=== PATIENT | female | born 1995 | race Caucasian/White ===

== ENCOUNTER 2023-06-09 23:50 | Inpatient (IN) ==
[2023-06-10] MEDS ORDERED: Buffered Lidocaine 1% SYRIN 1 ml ONE (00:17)
[2023-06-10] MEDS ORDERED: Lactated Ringers 1000 ml BAG 1,000 ML IV ONE ×2 (00:21→06:57)
[2023-06-10] MEDS ORDERED: Penicillin G Potassium IV 5,000,000 UNITS in NS 0.9% 100 ml BAG 100 ML IVPB ONE (00:21)
[2023-06-10] MEDS ORDERED: Buffered Lidocaine 1% SYRIN 1 ml INTRADERM ONE (00:21)
[2023-06-10] MEDS ORDERED: Promethazine INJ(RESTRICTED) 25 MG/ML 1 ml VIAL IV PRN (00:21)
[2023-06-10 01:00] LABS: ABS Basophils 0.1 10^3/uL (0.0-0.1); ABS Eosinophils 0.1 10^3/uL (0.0-0.5); ABS Lymphocytes 1.7 10^3/uL (1.0-4.8); ABS Monocytes 0.6 10^3/uL (0.0-0.9); ABS Neutrophils 5.4 10^3/uL (1.5-7.6); ABS Nucleated RBC 0.01 10^3/ul; Eosinophil % 0.7 %; Hematocrit 32.7 % (35-45); Hemoglobin 10.9 g/dL (11.5-14.3); Lymphocyte % 21.8 %; Mean Corpuscular Hemoglobin 25.4 pg (27-33); Mean Corpuscular Hgb Conc 33.3 g/dL (31-36); Mean Corpuscular Volume 76.2 fL (80-97); Mean Platelet Volume 8.1 fL (7.5-11.2); Nucleated Red Blood Cells % 0.1 /100 WBC (0.0-0.4); Platelet Count 175 10^3/uL (150-450); Red Blood Count 4.29 10^6/uL (3.63-4.92); White Blood Count 7.8 10^3/uL (3.8-11.8)
[2023-06-10] MEDS: Betamethasone 6 mg/ml 5 ml VIAL IM SCH (01:19)
[2023-06-10 01:22] LABS: Urine Benzodiazepine Screen None Detected (None Detect); Urine Cannabinoids Screen None Detected (None Detect); Urine Opiates Screen None Detected (None Detect)
[2023-06-10] MEDS ORDERED: Lidocaine 1% w EPI 1:200,000 SDV 10 ML VIAL ONE (02:09)
[2023-06-10] MEDS ORDERED: OBEPIDURAL (200 ML) 200 ML EPIDURAL ONE (02:09)
[2023-06-10] MEDS ORDERED: Lidocaine 2% w/ EPI 1:200,000 MPF 20 ML SDV VIAL ONE (02:29)
[2023-06-10] MEDS ORDERED: fentaNYL 100 mcg/2 ml 50 MCG/ML VIAL ONE (02:29)
[2023-06-10] MEDS ORDERED: Bupivacaine 0.25% SDV PF 10 ML VIAL INJ ONE (02:30)
[2023-06-10] MEDS: Lactated Ringers 1000 ml BAG 1,000 ML IV SCH ×5 (02:57→18:26)
[2023-06-10 03:44] LABS: Urine Appearance Clear; Urine Bilirubin Negative (Negative); Urine Blood 2+ (Negative); Urine Color Straw; Urine Glucose Negative (Negative); Urine Ketones Negative (Negative); Urine Nitrite Negative (Negative); Urine Protein Negative (Negative); Urine Specific Gravity 1.008 (1.002-1.030); Urine Urobilinogen Negative (Negative)
[2023-06-10 03:52] LABS: Urine Amorphous Crystals Present (Absent); Urine Bacteria Absent (Absent); Urine Red Blood Cell 3+(>10/hpf) (Absent); Urine Squamous Epithelial Cell Present (Absent); Urine White Blood Cell Absent (Absent)
[2023-06-10] MEDS: Penicillin G Potassium IV 3,000,000 UNITS in NS 0.9% 100 ml BAG 100 ML IVPB SCH ×4 (05:24→18:25)
[2023-06-10] MEDS ORDERED: Phenylephrine 40 mcg/mL 10mL (400mcg) SYRINGE IV PUSH PRN ×2 (06:57)
[2023-06-10] MEDS ORDERED: Sodium Citrate/Citric Acid LIQ 15 ML UDC PO PRN (06:57)
[2023-06-10] MEDS ORDERED: OBEPIDURAL (200 ML) 200 ML EPIDURAL SCH (07:00)
[2023-06-10] MEDS ORDERED: Oxytocin in LR 20,000 MILLI.UNIT/1,000 ML BAG IV SCH (18:00)
[2023-06-10] MEDS: Dibucaine 1% OINT 28.35 GM TUBE PR PRN (22:48)
[2023-06-10] MEDS: Witch Hazel PAD JAR TOPICAL PRN (22:48)
[2023-06-10] MEDS ORDERED: Lactated Ringers 1000 ml BAG 1,000 ML IV SCH (23:00)
[2023-06-11] MEDS: Penicillin G Potassium IV 3,000,000 UNITS in NS 0.9% 100 ml BAG 100 ML IVPB SCH (02:31)
[2023-06-11] MEDS: Betamethasone 6 mg/ml 5 ml VIAL IM SCH (04:16)
[2023-06-11 06:48] LABS: ABS Basophils 0.1 10^3/uL (0.0-0.1); ABS Lymphocytes 1.3 10^3/uL (1.0-4.8); ABS Monocytes 0.7 10^3/uL (0.0-0.9); ABS Neutrophils 7.8 10^3/uL (1.5-7.6); Eosinophil % 0.1 %; Hematocrit 24.9 % (35-45); Hemoglobin 8.4 g/dL (11.5-14.3); Lymphocyte % 12.6 %; Mean Corpuscular Hemoglobin 25.7 pg (27-33); Mean Corpuscular Hgb Conc 33.6 g/dL (31-36); Mean Corpuscular Volume 76.3 fL (80-97); Mean Platelet Volume 8.2 fL (7.5-11.2); Platelet Count 124 10^3/uL (150-450); Red Blood Count 3.27 10^6/uL (3.63-4.92); Red Cell Distribution Width 15.1 % (12-17); White Blood Count 9.9 10^3/uL (3.8-11.8)
[2023-06-11] MEDS ORDERED: Iron Sucrose 200 MG in NS 0.9% 100 ml BAG 100 ML IVPB ONE (12:00)
[2023-06-12 07:23] LABS: ABS Eosinophils 0.1 10^3/uL (0.0-0.5); ABS Lymphocytes 0.8 10^3/uL (1.0-4.8); ABS Monocytes 0.5 10^3/uL (0.0-0.9); ABS Neutrophils 4.3 10^3/uL (1.5-7.6); ABS Nucleated RBC 0.01 10^3/ul; Eosinophil % 1.4 %; Hemoglobin 8.6 g/dL (11.5-14.3); Lymphocyte % 14.6 %; Mean Corpuscular Hemoglobin 25.2 pg (27-33); Mean Corpuscular Volume 76.3 fL (80-97); Mean Platelet Volume 8.3 fL (7.5-11.2); Nucleated Red Blood Cells % 0.1 /100 WBC (0.0-0.4); Platelet Count 110 10^3/uL (150-450); Red Blood Count 3.41 10^6/uL (3.63-4.92); Red Cell Distribution Width 15.3 % (12-17); White Blood Count 5.7 10^3/uL (3.8-11.8)
[2023-06-12] MEDS: Witch Hazel PAD JAR TOPICAL PRN (07:51)
[2023-06-12] MEDS: Dibucaine 1% OINT 28.35 GM TUBE PR PRN (07:51)
[2023-06-12] MEDS ORDERED: Varicella Virus Vaccine Live 0.5 ML VIAL SUBCUT ONE (09:04)
[2023-06-12 14:07] VITALS: BP 123/68
[2023-06-12] MEDS ORDERED: Lidocaine 5% OINT TUBE TOPICAL PRN (16:13)
== END 2023-06-12 18:27 | disposition home or self-care (01) | DRG 560 ==
LOC: MCHOBOUT 23:50 → MCHOB 06-10 00:41
PROVIDERS: ADMIT Advanced Practice Midwife; ATTEND Advanced Practice Midwife

== ENCOUNTER 2024-07-04 11:56 | Observation (INO) ==
[2024-07-04] MEDS: Lactated Ringers 1000 ml BAG 1,000 ML IV ONE (13:22)
[2024-07-04] MEDS: Ondansetron 4 mg VIAL 2 MG/ML 2 ml VIAL IV ONE (13:22)
[2024-07-04 13:28] LABS: Hematocrit 40.8 % (35-45); Hemoglobin 13.6 g/dL (11.5-14.3); Mean Corpuscular Volume 81.4 fL (80-97); Red Blood Count 5.01 10^6/uL (3.63-4.92); White Blood Count 9.4 10^3/uL (3.8-11.8)
[2024-07-04 13:29] LABS: ABS Eosinophils 0.1 10^3/uL (0.0-0.5); ABS Lymphocytes 1.2 10^3/uL (1.0-4.8); ABS Monocytes 0.4 10^3/uL (0.0-0.9); ABS Neutrophils 7.7 10^3/uL (1.5-7.6); Lymphocyte % 12.8 %; Mean Corpuscular Hemoglobin 27.2 pg (27-33); Mean Corpuscular Hgb Conc 33.4 g/dL (31-36); Mean Platelet Volume 8.5 fL (7.5-11.2); Platelet Count 221 10^3/uL (150-450)
[2024-07-04 13:30] LABS: Eosinophil % 0.6 %
[2024-07-04 13:44] LABS: Albumin 4.7 g/dL (3.2-5.2); Albumin/Globulin Ratio 2.1 (1-3); Calcium 9.3 mg/dL (8.6-10.3); Creatinine, Serum 0.69 mg/dL (0.51-0.95); Globulin 2.2 g/dL (2-4); Potassium 4.2 mmol/L (3.5-5.0); Total Bilirubin 0.6 mg/dL (0.2-1.0); Total Protein 6.9 g/dL (6.4-8.9); eGFR CKD-EPI 120.4 (>60)
[2024-07-04 13:56] LABS: C Reactive Protein 2.85 mg/L (<8.01)
[2024-07-04 14:21] LABS: Urine Appearance Clear; Urine Bacteria Absent /HPF (Absent); Urine Bilirubin Negative (Negative); Urine Blood Negative (Negative); Urine Color Light-Yellow; Urine Glucose Negative (Negative); Urine Ketones Negative (Negative); Urine Nitrite Negative (Negative); Urine Protein Negative (Negative); Urine Red Blood Cell Trace(0-2/hpf) /HPF (0-Trace); Urine Specific Gravity 1.022 (1.002-1.030); Urine Squamous Epithelial Cell Present /HPF (Absent); Urine Urobilinogen Negative (Negative); Urine White Blood Cell Trace(0-5/hpf) /HPF (0-Trace); Urine pH 7.5 (5.0-8.0)
[2024-07-04] MEDS ORDERED: ACETAMINOPHEN IV ONE (16:51)
[2024-07-04 16:55] LABS: ABS Monocytes 0.5 10^3/uL (0.0-0.9); ABS Neutrophils 11.6 10^3/uL (1.5-7.6); Eosinophil % 0.3 %; Hematocrit 40.2 % (35-45); Hemoglobin 13.2 g/dL (11.5-14.3); Lymphocyte % 7.4 %; Mean Corpuscular Hemoglobin 26.8 pg (27-33); Mean Corpuscular Hgb Conc 32.9 g/dL (31-36); Mean Corpuscular Volume 81.6 fL (80-97); Mean Platelet Volume 8.3 fL (7.5-11.2); Platelet Count 211 10^3/uL (150-450); Red Blood Count 4.93 10^6/uL (3.63-4.92); White Blood Count 13.1 10^3/uL (3.8-11.8)
[2024-07-04] MEDS: ACETAMINOPHEN IV ONE (16:55)
[2024-07-04 17:24] LABS: HCG Pregnancy 0.3 mIU/mL
[2024-07-04 17:42] LABS: ALT 178 U/L (7-52); AST 274 U/L (13-39); Alkaline Phosphatase 83 U/L (35-149); Anion Gap 7 mmol/L (2-16); Blood Urea Nitrogen 12 mg/dL (6-24); C Reactive Protein 2.71 mg/L (<8.01); CO2 Carbon Dioxide 28 mmol/L (22-32); Calcium 8.3 mg/dL (8.6-10.3); Chloride 105 mmol/L (101-111); Glucose 105 mg/dL (70-100); Lipase 68 U/L (11.0-82.0); Magnesium 1.7 mg/dL (1.9-2.7); Potassium 3.7 mmol/L (3.5-5.0); Sodium 140 mmol/L (135-145); Total Bilirubin 1.2 mg/dL (0.2-1.0); eGFR CKD-EPI 124.5 (>60)
[2024-07-04 18:23] LABS: HCG Pregnancy < 0.60 mIU/mL
[2024-07-04] MEDS: Piperacillin/Tazobac 3.375 BAG 3.375 GM/100 ML BAG IV ONE (20:31)
[2024-07-04] MEDS ORDERED: Zosyn per Pharmacy NOTE FOLLOW UP SCH (22:00)
[2024-07-05] MEDS: ZOSYN 3.375 GM Q8H per EXTENDED INFUSION IV SCH ×2 (00:11→20:44)
[2024-07-05 01:07] LABS: Hepatitis B Surface Antigen Nonreactive (Nonreactive)
[2024-07-05 01:12] LABS: Hepatitis A Ab IgM Negative (Negative)
[2024-07-05 01:13] LABS: Hepatitis B Core IgM Nonreactive (Nonreactive)
[2024-07-05 01:25] LABS: Hepatitis C Antibody Negative (Negative)
[2024-07-05] MEDS: Ondansetron 4 mg VIAL 2 MG/ML 2 ml VIAL IV PRN (04:25)
[2024-07-05 06:28] LABS: Hematocrit 37.1 % (35-45); Hemoglobin 12.6 g/dL (11.5-14.3); Mean Corpuscular Hgb Conc 33.9 g/dL (31-36); Mean Corpuscular Volume 82.6 fL (80-97); Mean Platelet Volume 8.5 fL (7.5-11.2); Platelet Count 162 10^3/uL (150-450); Red Blood Count 4.49 10^6/uL (3.63-4.92); Red Cell Distribution Width 13.9 % (12-17)
[2024-07-05 07:10] LABS: Anion Gap 4 mmol/L (2-16); Blood Urea Nitrogen 13 mg/dL (6-24); CO2 Carbon Dioxide 28 mmol/L (22-32); Calcium 8.5 mg/dL (8.6-10.3); Chloride 107 mmol/L (101-111); Creatinine, Serum 0.76 mg/dL (0.51-0.95); Glucose 97 mg/dL (70-100); Potassium 4.5 mmol/L (3.5-5.0); Sodium 139 mmol/L (135-145); eGFR CKD-EPI 108.7 (>60)
[2024-07-05] MEDS ORDERED: ceFAZolin 2 GM PREMIX 2 GM/50 ML BAG ONE (09:17)
[2024-07-05] MEDS ORDERED: Rocuronium 50 mg VIAL 10 mg/ml 5 ml VIAL (50 mg) ONE ×2 (09:34→11:19)
[2024-07-05] MEDS ORDERED: fentaNYL 100 mcg/2 ml 50 MCG/ML VIAL ONE ×2 (09:35→10:59)
[2024-07-05] MEDS ORDERED: Propofol 10 MG/ML 20 ML BTL ONE ×3 (09:35→12:26)
[2024-07-05] MEDS ORDERED: Midazolam 2 mg/2 ml VIAL 1 mg/ml 2 ml VIAL (2 mg) ONE (09:35)
[2024-07-05] MEDS ORDERED: Lidocaine 2% PF 5 ML VIAL ONE (09:36)
[2024-07-05] MEDS ORDERED: Ondansetron 4 mg VIAL 2 MG/ML 2 ml VIAL ONE (10:54)
[2024-07-05] MEDS ORDERED: Dexamethasone IV 4 MG/ML VIAL 1 ml VIAL ONE (10:54)
[2024-07-05] MEDS ORDERED: Acetaminophen IV 1 GM/100ML 1,000 MG/100 ML BAG IV ONE (10:59)
[2024-07-05 11:33] LABS: AST 849 U/L (13-39); Albumin 3.9 g/dL (3.2-5.2); Albumin/Globulin Ratio 2.3 (1-3); Alkaline Phosphatase 126 U/L (35-149); Globulin 1.7 g/dL (2-4); Total Bilirubin 3.8 mg/dL (0.2-1.0); Total Protein 5.6 g/dL (6.4-8.9)
[2024-07-05 11:57] LABS: ALT 957 U/L (7-52)
[2024-07-05] MEDS ORDERED: fentaNYL 100 mcg/2 ml 50 MCG/ML VIAL IV PRN (13:00)
[2024-07-05] MEDS ORDERED: Ondansetron 4 mg VIAL 2 MG/ML 2 ml VIAL IV PRN (13:00)
[2024-07-05] MEDS ORDERED: Naloxone 0.4 mg VIAL 0.4 mg/ml 1 ml VIAL IV PRN (13:00)
[2024-07-05 13:55] LABS: Acetaminophen < 15 mcg/mL
[2024-07-05] MEDS ORDERED: Morphine 2 MG/ML SYRINGE IV PRN (14:11)
[2024-07-05 14:57] LABS: ABS Lymphocytes 0.3 10^3/uL (1.0-4.8); ABS Monocytes 0.1 10^3/uL (0.0-0.9); ABS Neutrophils 7.8 10^3/uL (1.5-7.6); Eosinophil % 0.2 %; Hemoglobin 13.2 g/dL (11.5-14.3); Mean Corpuscular Hemoglobin 27.7 pg (27-33); Mean Corpuscular Hgb Conc 33.8 g/dL (31-36); Mean Corpuscular Volume 81.9 fL (80-97); Mean Platelet Volume 8.2 fL (7.5-11.2); Platelet Count 164 10^3/uL (150-450); Red Blood Count 4.77 10^6/uL (3.63-4.92); Red Cell Distribution Width 14.3 % (12-17); White Blood Count 8.3 10^3/uL (3.8-11.8)
[2024-07-05 15:53] LABS: Creatinine, Serum 0.77 mg/dL (0.51-0.95)
[2024-07-05] MEDS: CARIPRAZINE 1.5 MG PO SCH ×2 (15:54→20:44)
[2024-07-05] MEDS ORDERED: Zosyn per Pharmacy NOTE FOLLOW UP SCH (16:00)
[2024-07-05 16:08] LABS: Albumin 4.4 g/dL (3.2-5.2); Albumin/Globulin Ratio 2.4 (1-3); Globulin 1.8 g/dL (2-4); Total Bilirubin 5.6 mg/dL (0.2-1.0); Total Protein 6.2 g/dL (6.4-8.9)
[2024-07-05] MEDS: Piperacillin/Tazobac 3.375 BAG 3.375 GM/100 ML BAG IV ONE (16:20)
[2024-07-05] MEDS: Scopolamine 1 mg/72hr PATCH TRANSDERM SCH (21:50)
[2024-07-06 07:49] LABS: ABS Monocytes 0.3 10^3/uL (0.0-0.9); ABS Neutrophils 6.2 10^3/uL (1.5-7.6); Eosinophil % 0.5 %; Hematocrit 38.7 % (35-45); Lymphocyte % 12.8 %; Mean Corpuscular Hemoglobin 27.9 pg (27-33); Mean Corpuscular Hgb Conc 33.5 g/dL (31-36); Mean Corpuscular Volume 83.2 fL (80-97); Mean Platelet Volume 9.2 fL (7.5-11.2); Platelet Count 173 10^3/uL (150-450); Red Blood Count 4.65 10^6/uL (3.63-4.92); Red Cell Distribution Width 14.4 % (12-17); White Blood Count 7.6 10^3/uL (3.8-11.8)
[2024-07-06 08:05] LABS: Calcium 8.8 mg/dL (8.6-10.3); Creatinine, Serum 0.63 mg/dL (0.51-0.95); Potassium 4.2 mmol/L (3.5-5.0); eGFR CKD-EPI 123.1 (>60)
[2024-07-06 08:26] LABS: Albumin 4.2 g/dL (3.2-5.2); Albumin/Globulin Ratio 2.2 (1-3); Direct Bilirubin 0.6 mg/dL (0.03-0.18); Globulin 1.9 g/dL (2-4); Indirect Bilirubin 1.4 mg/dL (0.3-1.0); Total Protein 6.1 g/dL (6.4-8.9)
[2024-07-06 13:45] VITALS: BP 103/59
== END 2024-07-06 15:45 | disposition home or self-care (01) ==
LOC: EDHOLD 11:56 → ED 11:56 → SUATTDRO 20:59 → EDHOLD 07-05 07:14 → MED 07-05 07:44 → SSU 07-05 14:03
PROVIDERS: ADMIT Student in an Organized Health Care Education/Training Program; ATTEND Internal Medicine

== ENCOUNTER 2024-08-22 08:43 | Inpatient (IN) ==
[2024-08-22 10:06] LABS: Urine Benzodiazepine Screen None Detected (None Detect); Urine Cannabinoids Screen None Detected (None Detect); Urine Opiates Screen None Detected (None Detect)
[2024-08-22 10:11] LABS: Urine Appearance Clear; Urine Bilirubin Negative (Negative); Urine Blood Negative (Negative); Urine Color Yellow; Urine Glucose Negative (Negative); Urine Ketones Negative (Negative); Urine Nitrite Negative (Negative); Urine Protein Negative (Negative); Urine Specific Gravity 1.023 (1.002-1.030); Urine Urobilinogen Negative (Negative); Urine pH 5.5 (5.0-8.0)
[2024-08-22 10:17] LABS: Urine Bacteria Absent /HPF (Absent); Urine Red Blood Cell 1+(3-5/hpf) /HPF (0-Trace); Urine Squamous Epithelial Cell Present /HPF (Absent); Urine White Blood Cell Trace(0-5/hpf) /HPF (0-Trace)
[2024-08-22] MEDS ORDERED: Al Hydrox/Mg Hydrox/Simet LIQ 30 ML UDC PO PRN (11:00)
[2024-08-23 08:36] VITALS: BP 121/87
[2024-08-23 09:17] LABS: ABS Eosinophils 0.1 10^3/uL (0.0-0.5); ABS Lymphocytes 1.3 10^3/uL (1.0-4.8); ABS Monocytes 0.4 10^3/uL (0.0-0.9); ABS Neutrophils 6.1 10^3/uL (1.5-7.6); ABS Nucleated RBC 0.01 10^3/ul; Hemoglobin 14.8 g/dL (11.5-14.3); Lymphocyte % 16.7 %; Mean Corpuscular Hemoglobin 28.7 pg (27-33); Mean Corpuscular Hgb Conc 33.6 g/dL (31-36); Mean Corpuscular Volume 85.2 fL (80-97); Mean Platelet Volume 8.2 fL (7.5-11.2); Nucleated Red Blood Cells % 0.1 %/100WBC (0.0-0.8); Platelet Count 223 10^3/uL (150-450); Red Blood Count 5.17 10^6/uL (3.63-4.92); Red Cell Distribution Width 13.6 % (12-17)
[2024-08-23 09:41] LABS: ALT 19 U/L (7-52); AST 24 U/L (13-39); Albumin 4.6 g/dL (3.2-5.2); Albumin/Globulin Ratio 1.8 (1-3); Alkaline Phosphatase 64 U/L (35-149); Anion Gap 10 mmol/L (2-16); Blood Urea Nitrogen 12 mg/dL (6-24); CO2 Carbon Dioxide 27 mmol/L (22-32); Calcium 9.7 mg/dL (8.6-10.3); Chloride 102 mmol/L (101-111); Cholesterol 181 mg/dL; Creatinine, Serum 0.76 mg/dL (0.51-0.95); Globulin 2.5 g/dL (2-4); Glucose 135 mg/dL (70-100); HDL Cholesterol 38.9 mg/dL; LDL Cholesterol 109 mg/dL; Potassium 4.6 mmol/L (3.5-5.0); Sodium 139 mmol/L (135-145); Total Bilirubin 0.4 mg/dL (0.2-1.0); Total Protein 7.1 g/dL (6.4-8.9); Triglycerides 167 mg/dL; eGFR CKD-EPI 108.7 (>60)
[2024-08-23 09:44] LABS: HCG Pregnancy < 0.60 mIU/mL
[2024-08-23 09:53] LABS: TSH Ultra Thyroid Stim Horm 2.11 mcIU/mL (0.34-5.60)
== END 2024-08-23 15:06 | disposition home or self-care (01) | DRG 753 ==
LOC: ED 08:43 → BSU 11:00 → EDHOLD 11:00 → BSU 11:59
PROVIDERS: ADMIT Psychiatry & Neurology Psychiatry; ATTEND Student in an Organized Health Care Education/Training Program